=== PATIENT | female | born 1960 | race Caucasian/White ===

== ENCOUNTER 2016-12-13 18:02 | Inpatient (IN) | payer MEDICAID ==
--- NOTE | 2016-12-13 18:50 | EDPHY ---
Mental Health General Previous Psychiatric History: previous inpatient psychiatric admission, substance abuse, PTSD Smoking Status: Current every day smoker Time Patient Placed on M1 Hold: 17:25 Time Medically Cleared for Psychiatric Evaluation: 19:36 Time of Transfer of Care: 00:00 To Dr:: Braulio Course: awaiting acceptance to inpatient bed <Varsha Glynn - Last Filed: 12/13/16 23:24> <Lukas Bojorquez - Last Filed: 12/14/16 10:50> <Mic Ramsey - Last Filed: 12/15/16 06:59> To Dr:: Dr. Ramsey at 2215 <DemetraCali Marie - Last Filed: 12/15/16 14:13> <Clint Neri - Last Filed: 12/15/16 23:23> <Hermelinda Brock - Last Filed: 12/16/16 06:17> Narrative: CHIEF COMPLAINT: suicidal ideations HISTORY OF PRESENT ILLNESS: 56-year-old transgender female presents emergency department on an M1 hold from [facility] for suicidal ideations. Patient has a history of PTSD. She is reporting suicidal ideations for the past 2 weeks with auditory and visual hallucinations. Patient states she has not had any alcohol for 1 week, no marijuana for 1 week, she denies other drug use. She denies chest pain, shortness of breath, fevers, any other complaints. She reports a plan to stop eating. REVIEW OF SYSTEMS: A comprehensive 10 point review of systems is otherwise negative aside from elements mentioned in the history of present illness. Physical Exam Gen: Alert and Oriented, NAD HEENT: PERRL, moist mucous membranes NECK: no meningismus CV: regular rate and regular rhythm PULM: CTAB, no wheezes ABDOMEN: soft, non tender to palpation, BS present BACK: No CVA tenderness NEURO: Neurologically grossly intact EXTREMITIES: normal appearing SKIN: no rash or break in skin on exposed skin PSYCH: Reports suicidal ideations, auditory and visual hallucinations. (Varsha Glynn) [id number] patient signed out to nd from YOLANDA Glynn pending placement. (Mic Ramsey) Patient's care transferred to nd at 7:[address] Raj Ramsey. Patient is currently sleeping and has no complaints. We are awaiting placement. She is on a hold. 3:00 p.m. no events throughout the day, continue to await placement. Care transferred to Dr. Cali Mccrary. 3:00 p.m. December 15. Patient's care transferred back to me by Dr. Cali Mccrary. Patient has been quite throughout the day and is currently awaiting placement. 11:23 p.m. mental Health is planning to re-evaluate the patient and is considering discharge. Care transferred to Dr. Brock. (Clint Neri) Medical Decision Makin-Report passed on to Dr. Ramsey at the end of my shift pending placement. EPS is seeking placement. (Varsha Glynn) 1020 Care re-assumed by me pending placement. [address] Mccrary pending placement. (Mic Ramsey) Patient has remained stable on my shift. She has been evaluated and mental health is looking for placement Patient has remained stable on my shift. She has been evaluated and is looking for placement (Cali Mccrary) 7:00 a.m.- The patient has been stable throughout my shift. She was evaluated by the mental health worker who is currently looking for a crisis stabilization unit. The patient will be signed out to the oncoming provider Dr. Vasquez. (Hermelinda Brock) - Objective Vital Signs: Initial Vital Signs Temperature (C) 36.4 C 12/13/16 18:02 Heart Rate 59 L 12/13/16 18:02 Respiratory Rate 20 12/13/16 18:02 Blood Pressure 125/80 H 12/13/16 18:02 O2 Sat (%) 96 12/13/16 18:02 O2 Delivery Mode Room Air Allergies/Adverse Reactions: bupropion HCl [From Wellbutrin] Allergy (Verified 12/13/16 18:13) Pork/Porcine Containing Products [pork] Allergy (Verified 12/13/16 18:13) varenicline tartrate [From Chantix] Allergy (Verified 12/13/16 18:13) Home Medications: Medication Instructions Recorded Albuterol [Proventil Inhaler HFA 2 puffs IH Q4-6PRN PRN 12/13/16 (*)] Estradiol [Estradiol Transdermal 1 each TD Q7D 12/13/16 Patch] Gabapentin [Neurontin 300 MG (*)] 300 mg PO TID 12/13/16 Naproxen [Naprosyn] 500 mg PO BID PRN 12/13/16 Tiotropium Inhaler [Spiriva 18 mcg IH DAILY 12/13/16 Handihaler] risperiDONE [Risperdal] 2 mg PO BID 12/13/16 Albuterol [Proventil Neb] 3 ml IH Q4H PRN 12/15/16 Beclomethasone Qvar 80 [Qvar 80 2 puffs IH BIDI 12/15/16 (*)] Calcium Carb W/Vit D [Calcium Carb 500 mg PO DAILY 12/15/16 W/Vit D 500/200 (*)] Docusate Sodium [Colace 100 MG (*)] 100 mg PO DAILY 12/15/16 Emtricitabine/Tenofovir [Truvada 1 tab PO DAILY 12/15/16 200MG/300MG (*)] Fluticasone Nasal [Flonase Nasal 1 sprays NASAL HS 12/15/16 [place] (RX)] Nicotine [Nicoderm Cq 21 mg (*)] 21 mg TD DAILY 12/15/16 Spironolactone [Aldactone 50 MG 50 mg PO DAILY 12/15/16 (RX)] Terbinafine HCl [LamISIL 250 MG 250 mg PO DAILY 12/15/16 (*)] Medications Given: Discontinued Medications Acetaminophen (Tylenol) 650 mg PO EDNOW ONE Stop: 12/14/16 08:29 Last Admin: 12/14/16 09:12 Dose: 650 mg Acetaminophen (Tylenol) 1,000 mg PO EDNOW ONE Stop: 12/14/16 18:55 Last Admin: 12/14/16 18:54 Dose: 1,000 mg Calcium Carbonate (Oyster Shell Calcium) 500 mg PO EDNOW ONE Stop: 12/15/16 10:52 Last Admin: 12/15/16 11:39 Dose: 500 mg Gabapentin (Neurontin) 300 mg PO EDNOW ONE Stop: 12/13/16 22:22 Last Admin: 12/13/16 23:06 Dose: 300 mg Gabapentin (Neurontin) 300 mg PO EDNOW ONE Stop: 12/14/16 08:30 Last Admin: 12/14/16 09:12 Dose: 300 mg Gabapentin (Neurontin) 100 mg PO EDNOW ONE Stop: 12/14/16 19:55 Last Admin: 12/14/16 20:16 Dose: 300 mg Gabapentin (Neurontin) 300 mg PO EDNOW ONE Stop: 12/15/16 06:24 Last Admin: 12/15/16 06:27 Dose: 300 mg Gabapentin (Neurontin) 300 mg PO EDNOW ONE Stop: 12/15/16 12:18 Last Admin: 12/15/16 12:24 Dose: 300 mg Gabapentin (Neurontin) 300 mg PO EDNOW ONE Stop: 12/15/16 19:25 Last Admin: 12/15/16 19:35 Dose: 300 mg Naproxen (Aleve) 220 mg PO EDNOW ONE Stop: 12/13/16 22:23 Last Admin: 12/13/16 23:07 Dose: 220 mg Naproxen (Aleve) 220 mg PO ONCE ONE Stop: 12/14/16 08:29 Last Admin: 12/14/16 10:07 Dose: 220 mg Naproxen (Aleve) 220 mg PO ONCE ONE Stop: 12/15/16 06:39 Last Admin: 12/15/16 06:49 Dose: 220 mg Naproxen (Aleve) 220 mg PO EDNOW ONE Stop: 12/15/16 14:22 Last Admin: 12/15/16 14:57 Dose: 220 mg Nicotine (Nicoderm Cq) 14 mg TD EDNOW ONE Stop: 12/14/16 08:28 Last Admin: 12/14/16 10:07 Dose: 14 mg Nicotine (Nicoderm Cq) 21 mg TD EDNOW ONE Stop: 12/15/16 10:54 Last Admin: 12/15/16 11:39 Dose: 21 mg Risperidone (Risperdal) 2 mg PO EDNOW ONE Stop: 12/13/16 22:23 Last Admin: 12/13/16 23:07 Dose: 2 mg Risperidone (Risperdal) 2 mg PO ONCE ONE Stop: 12/14/16 10:09 Last Admin: 12/14/16 10:25 Dose: 2 mg Risperidone (Risperdal) 2 mg PO ONCE ONE Stop: 12/14/16 19:55 Last Admin: 12/14/16 20:16 Dose: 2 mg Risperidone (Risperdal) 2 mg PO ONCE ONE Stop: 12/15/16 06:24 Last Admin: 12/15/16 06:41 Dose: 2 mg Risperidone (Risperdal) 2 mg PO ONCE ONE Stop: 12/15/16 19:26 Last Admin: 12/15/16 19:35 Dose: 2 mg Spironolactone (Aldactone) 50 mg PO EDNOW ONE Stop: 12/15/16 10:54 Last Admin: 12/15/16 11:39 Dose: 50 mg Laboratory Results: Laboratory Results 12/13/16 18:45 12/13/16 18:45 Departure <Varsha Glynn - Last Filed: 12/13/16 23:24> <Lukas Bojorquez - Last Filed: 12/14/16 10:50> <Mic Ramsey - Last Filed: 12/15/16 06:59> <Cali Mccrary - Last Filed: 12/15/16 14:13> <Clint Neri - Last Filed: 12/15/16 23:23> <Hermelinda Brock - Last Filed: 12/16/16 06:17> - Departure Referrals: Patient,NotPresent [Unknown] - As per Instructions
[2016-12-13 18:56] LABS: % IMMATURE GRANULYOCYTES 0.2 % (0.0-1.1); ABSOLUTE IMMATURE GRANULOCYTES 0.01 10^3/uL (0.00-0.10); ADD DIFF? NO; ADD MORPH? NO; ADD SCAN? NO; ATYPICAL LYMPHOCYTE FLAG 10 (0-99); FRAGMENT RBC FLAG 0 (0-99); HEMATOCRIT 43.2 % (38.0-47.0); HEMOGLOBIN 14.3 g/dL (12.6-16.3); LEFT SHIFT FLG 0 (0-99); LIPEMIA HEMOLYSIS FLAG 80 (0-99); MEAN CELL HEMOGLOBIN 32.1 pg (27.9-34.1); MEAN CELL HEMOGLOBIN CONCENTR. 33.1 g/dL (32.4-36.7); MEAN CELL VOLUME 96.9 fL (81.5-99.8); MEAN PLATELET VOLUME 9.5 fL (8.7-11.7); PLATELET CLUMPS FLAG 0 (0-99); PLATELET COUNT 208 10^3/uL (150-400); RED BLOOD CELL COUNT 4.46 10^6/uL (4.18-5.33); RED CELL DISTRIBUTION WIDTH 12.7 % (11.5-15.2)
[2016-12-13 19:11] LABS: ANION GAP 11 mEq/L (8-16); CALCIUM 9.2 mg/dL (8.5-10.4); CARBON DIOXIDE 28 mEq/l (22-31); CHLORIDE 102 mEq/L (97-110); CREATININE 0.8 mg/dL (0.6-1.0); ETHANOL SERUM < 10 mg/dL (0-10); GLOMERULAR FILTRATION RATE > 60; GLUCOSE 110 mg/dL (70-100); POTASSIUM 4.6 mEq/L (3.5-5.2); SODIUM 141 mEq/L (134-144)
[2016-12-13] MEDS ORDERED: GABAPENTIN 300 MG CAP PO ONE (22:21)
[2016-12-13] MEDS ORDERED: risperiDONE 2 MG TAB PO ONE (22:22)
[2016-12-13] MEDS ORDERED: NAPROXEN SODIUM 220 MG TAB PO ONE (22:22)
[2016-12-14] MEDS ORDERED: NICOTINE 14 MG/24 HR PATCH TD ONE (08:27)
[2016-12-14] MEDS ORDERED: NAPROXEN SODIUM 220 MG TAB PO ONE (08:28)
[2016-12-14] MEDS ORDERED: ACETAMINOPHEN 325 MG TAB PO ONE (08:28)
[2016-12-14] MEDS ORDERED: GABAPENTIN 300 MG CAP PO ONE (08:29)
[2016-12-14] MEDS ORDERED: FAMOTIDINE 20 MG TAB ONE (10:02)
[2016-12-14] MEDS ORDERED: risperiDONE 2 MG TAB PO ONE ×2 (10:08→19:54)
[2016-12-14] MEDS ORDERED: ACETAMINOPHEN 500 MG TAB PO ONE (18:54)
[2016-12-14] MEDS ORDERED: GABAPENTIN 100 MG CAP PO ONE (19:54)
[2016-12-15] MEDS ORDERED: GABAPENTIN 300 MG CAP PO ONE ×3 (06:23→19:24)
[2016-12-15] MEDS ORDERED: risperiDONE 2 MG TAB PO ONE ×2 (06:23→19:25)
[2016-12-15] MEDS ORDERED: NAPROXEN SODIUM 220 MG TAB PO ONE ×2 (06:38→14:21)
[2016-12-15] MEDS ORDERED: ESTRADIOL VIVELLE 0.1 MG PATCH TD SCH (08:00)
[2016-12-15] MEDS ORDERED: CALCIUM CARBONATE 500 MG TAB PO ONE (10:51)
[2016-12-15] MEDS ORDERED: SPIRONOLACTONE 50 MG TAB PO ONE (10:53)
[2016-12-15] MEDS ORDERED: NICOTINE 21 MG/24 HR PATCH TD ONE ×2 (10:53→21:57)
[2016-12-15] MEDS ORDERED: EMTRICITABINE/TENOFOVIR 200MG/300MG TAB PO ONE (11:29)
[2016-12-15] MEDS: EMTRICITABINE/TENOFOVIR 200MG/300MG TAB PO ONE (11:39)
[2016-12-16] MEDS ORDERED: GABAPENTIN 300 MG CAP PO ONE ×2 (07:32→11:50)
[2016-12-16] MEDS ORDERED: CALCIUM CARBONATE 500 MG TAB PO ONE (07:32)
[2016-12-16] MEDS ORDERED: NAPROXEN SODIUM 220 MG TAB PO PRN (07:32)
[2016-12-16] MEDS ORDERED: SPIRONOLACTONE 25 MG TAB PO ONE (07:32)
[2016-12-16] MEDS ORDERED: risperiDONE 2 MG TAB PO ONE (07:32)
[2016-12-16] MEDS: EMTRICITABINE/TENOFOVIR 200MG/300MG TAB PO ONE (09:00)
[2016-12-16] MEDS ORDERED: ALBUTEROL 60 PUFFS/8 GM MDI IH PRN (21:45)
[2016-12-16] MEDS ORDERED: ACETAMINOPHEN 325 MG TAB PO PRN (21:48)
[2016-12-16] MEDS ORDERED: MAGNESIUM HYDROXIDE 30 ML UDCUP PO PRN (21:48)
[2016-12-16] MEDS ORDERED: NICOTINE POLACRILEX 2 MG GUM B PRN (21:49)
[2016-12-16] MEDS ORDERED: LORazepam 0.5 MG TAB PO PRN (21:49)
[2016-12-16] MEDS: NAPROXEN SODIUM 220 MG TAB PO PRN (22:02)
[2016-12-16] MEDS: risperiDONE 2 MG TAB PO SCH (22:02)
[2016-12-16] MEDS: GABAPENTIN 300 MG CAP PO SCH (22:02)
[2016-12-16] MEDS: FLUTICASONE NASAL 120 SPRAYS/16 GM MDI EACHNARE SCH (22:06)
[2016-12-16] MEDS: BECLOMETHASONE QVAR 80 MDI IH SCH (22:18)
[2016-12-17] MEDS: BECLOMETHASONE QVAR 80 MDI IH SCH ×2 (06:13→21:43)
[2016-12-17] MEDS: NICOTINE 21 MG/24 HR PATCH TD SCH (07:13)
[2016-12-17] MEDS: CALCIUM CARB W/VIT D 500 MG TAB PO SCH (08:16)
[2016-12-17] MEDS: DOCUSATE SODIUM 100 MG CAP PO SCH (08:16)
[2016-12-17] MEDS: EMTRICITABINE/TENOFOVIR 200MG/300MG TAB PO SCH (08:17)
[2016-12-17] MEDS: GABAPENTIN 300 MG CAP PO SCH ×3 (08:17→19:01)
[2016-12-17] MEDS: SPIRONOLACTONE 50 MG TAB PO SCH (08:18)
[2016-12-17] MEDS: risperiDONE 2 MG TAB PO SCH ×2 (08:18→19:01)
[2016-12-17] MEDS: TERBINAFINE HCL 250 MG TAB PO SCH (08:21)
[2016-12-17] MEDS: TIOTROPIUM INHALER 18 MCG/DOSE 5 DOSE/MDI IH SCH (08:21)
[2016-12-17] MEDS: NAPROXEN SODIUM 220 MG TAB PO PRN ×2 (08:28→19:00)
[2016-12-17] MEDS: ALBUTEROL 60 PUFFS/8 GM MDI IH SCH ×5 (08:59→21:42)
[2016-12-17] MEDS ORDERED: PNEUMOCOCCAL 0.5ML VACCINE VIAL IM ONE (12:27)
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
[2016-12-17] MEDS ORDERED: risperiDONE 0.5 MG TAB PO PRN (19:45)
[2016-12-17] MEDS ORDERED: PRAZOSIN HCL 1 MG CAP PO SCH (21:00)
[2016-12-17] MEDS: GABAPENTIN 400 MG CAP PO SCH (21:43)
[2016-12-17] MEDS: FLUTICASONE NASAL 120 SPRAYS/16 GM MDI EACHNARE SCH (21:44)
[2016-12-18] MEDS: ALBUTEROL 60 PUFFS/8 GM MDI IH SCH ×3 (02:06→09:16)
[2016-12-18] MEDS: BECLOMETHASONE QVAR 80 MDI IH SCH ×2 (07:23→21:53)
[2016-12-18] MEDS ORDERED: ESTRADIOL VIVELLE 0.1 MG PATCH TD SCH (08:00)
[2016-12-18] MEDS: GABAPENTIN 400 MG CAP PO SCH ×3 (08:06→20:30)
[2016-12-18] MEDS: DOCUSATE SODIUM 100 MG CAP PO SCH ×2 (08:06→08:11)
[2016-12-18] MEDS: CALCIUM CARB W/VIT D 500 MG TAB PO SCH (08:06)
[2016-12-18] MEDS: SPIRONOLACTONE 50 MG TAB PO SCH (08:06)
[2016-12-18] MEDS: risperiDONE 2 MG TAB PO SCH ×2 (08:06→20:32)
[2016-12-18] MEDS: EMTRICITABINE/TENOFOVIR 200MG/300MG TAB PO SCH (08:07)
[2016-12-18] MEDS: TERBINAFINE HCL 250 MG TAB PO SCH (08:11)
[2016-12-18] MEDS: NAPROXEN SODIUM 220 MG TAB PO PRN (08:12)
[2016-12-18] MEDS: NICOTINE 21 MG/24 HR PATCH TD SCH (08:15)
[2016-12-18] MEDS: TIOTROPIUM INHALER 18 MCG/DOSE 5 DOSE/MDI IH SCH (08:59)
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
[2016-12-18] MEDS: ALBUTEROL INHALER IH PRN (13:35)
[2016-12-18] MEDS: FLUTICASONE NASAL 120 SPRAYS/16 GM MDI EACHNARE SCH (20:32)
[2016-12-18] MEDS ORDERED: PRAZOSIN HCL 1 MG CAP PO SCH (21:00)
[2016-12-18] MEDS ORDERED: ESTRADIOL TD SCH (21:32)
[2016-12-19] MEDS: GABAPENTIN 400 MG CAP PO SCH ×4 (06:20→18:45)
[2016-12-19] MEDS: BECLOMETHASONE QVAR 80 MDI IH SCH ×2 (06:34→17:11)
[2016-12-19] MEDS: NICOTINE 21 MG/24 HR PATCH TD SCH ×2 (09:09→16:49)
[2016-12-19] MEDS: EMTRICITABINE/TENOFOVIR 200MG/300MG TAB PO SCH (09:10)
[2016-12-19] MEDS: SPIRONOLACTONE 50 MG TAB PO SCH (09:10)
[2016-12-19] MEDS: risperiDONE 2 MG TAB PO SCH ×2 (09:11→18:46)
[2016-12-19] MEDS: NAPROXEN SODIUM 220 MG TAB PO PRN ×2 (09:11→18:48)
[2016-12-19] MEDS: TIOTROPIUM INHALER 18 MCG/DOSE 5 DOSE/MDI IH SCH (09:21)
[2016-12-19] MEDS: ALBUTEROL INHALER IH PRN ×3 (09:23→21:28)
[2016-12-19] MEDS: CALCIUM CARB W/VIT D 500 MG TAB PO SCH (09:25)
[2016-12-19] MEDS: DOCUSATE SODIUM 100 MG CAP PO SCH (09:25)
[2016-12-19] MEDS: TERBINAFINE HCL 250 MG TAB PO SCH (09:28)
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
[2016-12-19] MEDS: [UNRECOGNIZED DRUG - OTHER] PO SCH (12:59)
[2016-12-19] MEDS: [UNRECOGNIZED DRUG - OTHER] PO SCH (13:00)
[2016-12-19] MEDS: OMEGA-3 FATTY ACIDS 1,000 MG CAP PO SCH (13:01)
[2016-12-19] MEDS: FLUTICASONE NASAL 120 SPRAYS/16 GM MDI EACHNARE SCH ×2 (18:49→21:27)
[2016-12-19] MEDS ORDERED: PRAZOSIN HCL 1 MG CAP PO SCH (19:00)
[2016-12-20] MEDS: ALBUTEROL INHALER IH PRN ×4 (06:35→20:16)
[2016-12-20] MEDS: risperiDONE 2 MG TAB PO SCH ×2 (06:36→18:50)
[2016-12-20] MEDS: TERBINAFINE HCL 250 MG TAB PO SCH (06:38)
[2016-12-20] MEDS: SPIRONOLACTONE 50 MG TAB PO SCH (06:39)
[2016-12-20] MEDS: EMTRICITABINE/TENOFOVIR 200MG/300MG TAB PO SCH (06:39)
[2016-12-20] MEDS: GABAPENTIN 400 MG CAP PO SCH ×3 (06:40→18:50)
[2016-12-20] MEDS: CALCIUM CARB W/VIT D 500 MG TAB PO SCH (06:41)
[2016-12-20] MEDS: NICOTINE 21 MG/24 HR PATCH TD SCH (06:42)
[2016-12-20] MEDS: [UNRECOGNIZED DRUG - OTHER] PO SCH (06:43)
[2016-12-20] MEDS: [UNRECOGNIZED DRUG - OTHER] PO SCH (06:44)
[2016-12-20] MEDS: OMEGA-3 FATTY ACIDS 1,000 MG CAP PO SCH (06:45)
[2016-12-20] MEDS: TIOTROPIUM INHALER 18 MCG/DOSE 5 DOSE/MDI IH SCH (06:46)
[2016-12-20] MEDS: BECLOMETHASONE QVAR 80 MDI IH SCH ×2 (06:54→17:03)
[2016-12-20] MEDS: DOCUSATE SODIUM 100 MG CAP PO SCH (06:54)
[2016-12-20] MEDS ORDERED: NICOTINE 21 MG/24 HR PATCH TD SCH (07:00)
[2016-12-20] MEDS: NAPROXEN SODIUM 220 MG TAB PO PRN ×2 (08:51→19:13)
--- NOTE | 2016-12-20 09:52 | SOAPPROG ---
SOAP Progress Note Assessment/Plan: Assessment: 56-year-old w/hx of PTSD and possible mood d/o reportedly illiterate unemployed homeless transgendered [id number] reporting extensive trauma history and self-reported [facility] 7, admitted on M-1 with SI, feeling unable to maintain own safety outside of hospital setting, and fearing harm from others, and with some delusional thoughts. 12/18/16 09:38 per staff, pt has been with low frustration tolerance, impatient and demanding, escalating easily when needs not met right away, and needing redirection. Patient reports "first best night of sleep in a long time" with Prazosin 1mg hs. No NM/FB. Denied s/e. would like to continue, and incr to 2mg. Still reports SI as "9/10". "I want to learn to cope with others and love myself". States she is still feeling depressed, +anhedonia, +H/H/W, decr appetite, and +"fast" thoughts. Reports no AH but +VH "seeing appliances turning into robots"... Asks about using a razor to shave facial stubble, and take bath if possible. States she can be safe on the unit and wants to be here for help. Denies physical c/o, no akathisia, not tremor/stiffness noted or reported. and denied any medication s/e. MSE: cooperative, good eye contact, nml psychom activity, speech nml/incr rate at times and vol varying according to content of conversation, mood "depressed", affect slightly labile but controlled, thought process generally linear, denied AH, +VH, +SI but no plan/intent, denied HI. i/j- limited, cognition intact PLAN: incr prazosin to 2mg hs cont Risperdal 2mg bid and 0.5mg bid prn okay d/c suicide precautions, continue safety prec [facility] f/u to assist with structured/safe setting after d/c which will help with pt safety eval for possible mood stabilizer if with hx of n/c, could consider Consta Objective: Vital Signs Temp Pulse Resp BP Pulse Ox 36.3 C 78 12 118/71 96 12/20/16 07:50 12/20/16 07:50 12/20/16 07:50 12/20/16 07:50 12/20/16 07:50 - Time Spent With Patient Time Spent With Patient: 35 min - Pending Discharge Pending Discharge Within 24 Hours: No Pending Discharge Within 48 Hours: No ICD10 Worksheet Patient Problems: Problems Problem Status Onset Post traumatic stress disorder (PTSD) Acute Suicidal ideation Acute Unspecified psychosis Acute - ICD10 Problem Qualifiers (1) Suicidal ideation (2) Post traumatic stress disorder (PTSD) (3) Unspecified psychosis Qualifiers: Psychosis type: unspecified psychosis type Schizoaffective disorder type: S Schizophrenia type: S Qualified Code(s): F29 - Unspecified psychosis not due to a substance or known physiological condition
[2016-12-20] MEDS ORDERED: PRAZOSIN HCL 1 MG CAP PO SCH (10:06)
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
[2016-12-20] MEDS: FLUTICASONE NASAL 120 SPRAYS/16 GM MDI EACHNARE SCH (18:50)
[2016-12-20] MEDS: MAG HYDROX/AL HYDROX/SIMETH 30 ML UDCUP PO PRN (18:50)
[2016-12-21] MEDS: GABAPENTIN 400 MG CAP PO SCH ×3 (06:42→18:55)
[2016-12-21] MEDS: SPIRONOLACTONE 50 MG TAB PO SCH (06:43)
[2016-12-21] MEDS: CALCIUM CARB W/VIT D 500 MG TAB PO SCH (06:43)
[2016-12-21] MEDS: risperiDONE 2 MG TAB PO SCH ×2 (06:43→18:55)
[2016-12-21] MEDS: NICOTINE 21 MG/24 HR PATCH TD SCH (06:44)
[2016-12-21] MEDS: EMTRICITABINE/TENOFOVIR 200MG/300MG TAB PO SCH (06:46)
[2016-12-21] MEDS: TERBINAFINE HCL 250 MG TAB PO SCH (06:46)
[2016-12-21] MEDS: NAPROXEN SODIUM 220 MG TAB PO PRN (06:47)
[2016-12-21] MEDS: ALBUTEROL INHALER IH PRN ×4 (06:47→18:23)
[2016-12-21] MEDS: [UNRECOGNIZED DRUG - OTHER] PO SCH (06:48)
[2016-12-21] MEDS: [UNRECOGNIZED DRUG - OTHER] PO SCH (06:49)
[2016-12-21] MEDS: TIOTROPIUM INHALER 18 MCG/DOSE 5 DOSE/MDI IH SCH ×2 (06:51→10:41)
[2016-12-21] MEDS: BECLOMETHASONE QVAR 80 MDI IH SCH ×2 (06:51→17:11)
[2016-12-21] MEDS: DOCUSATE SODIUM 100 MG CAP PO SCH (06:52)
[2016-12-21] MEDS: OMEGA-3 FATTY ACIDS 1,000 MG CAP PO SCH (06:56)
[2016-12-21 07:26] VITALS: RESP 16
[2016-12-21] MEDS ORDERED: PRAZOSIN HCL 1 MG CAP PO SCH (10:40)
[2016-12-21] MEDS: MAG HYDROX/AL HYDROX/SIMETH 30 ML UDCUP PO PRN (10:42)
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
[2016-12-21] MEDS ORDERED: GABAPENTIN 400 MG CAP PO SCH (10:48)
[2016-12-21] MEDS: GABAPENTIN 100 MG CAP PO SCH ×2 (12:20→18:55)
[2016-12-21] MEDS: FLUTICASONE NASAL 120 SPRAYS/16 GM MDI EACHNARE SCH (18:55)
[2016-12-22] MEDS: TERBINAFINE HCL 250 MG TAB PO SCH (06:26)
[2016-12-22] MEDS: SPIRONOLACTONE 50 MG TAB PO SCH (06:26)
[2016-12-22] MEDS: EMTRICITABINE/TENOFOVIR 200MG/300MG TAB PO SCH (06:27)
[2016-12-22] MEDS: OMEGA-3 FATTY ACIDS 1,000 MG CAP PO SCH (06:27)
[2016-12-22] MEDS: ALBUTEROL INHALER IH PRN (06:28)
[2016-12-22] MEDS: GABAPENTIN 100 MG CAP PO SCH (06:28)
[2016-12-22] MEDS: risperiDONE 2 MG TAB PO SCH (06:31)
[2016-12-22] MEDS: DOCUSATE SODIUM 100 MG CAP PO SCH (06:35)
[2016-12-22] MEDS: BECLOMETHASONE QVAR 80 MDI IH SCH (06:35)
[2016-12-22] MEDS: NICOTINE 21 MG/24 HR PATCH TD SCH (06:35)
[2016-12-22] MEDS: NAPROXEN SODIUM 220 MG TAB PO PRN (06:49)
[2016-12-22] MEDS: CALCIUM CARB W/VIT D 500 MG TAB PO SCH (06:52)
[2016-12-22] MEDS: GABAPENTIN 400 MG CAP PO SCH (06:54)
[2016-12-22] MEDS: TIOTROPIUM INHALER 18 MCG/DOSE 5 DOSE/MDI IH SCH ×2 (06:56→08:28)
[2016-12-22] MEDS: [UNRECOGNIZED DRUG - OTHER] PO SCH ×2 (06:56→08:27)
[2016-12-22] MEDS: [UNRECOGNIZED DRUG - OTHER] PO SCH ×2 (06:56→08:28)
[2016-12-22] MEDS ORDERED: ESTRADIOL VIVELLE 0.1 MG PATCH TD SCH (07:00)
[2016-12-22 08:28] VITALS: BP 119/71; PULSE 77; TEMP 98.2; O2SAT 95
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
== END 2016-12-22 10:40 | disposition home or self-care (01) | DRG 882 ==
LOC: EDUNIT# → EEVIPCON 18:02 → BBEH 12-16 20:50
PROVIDERS: ADMIT Psychiatry & Neurology Behavioral Neurology & Neuropsychiatry; ATTEND Psychiatry & Neurology Behavioral Neurology & Neuropsychiatry
DX: F43.10 Post-traumatic stress disorder, unspecified (principal); F60.4 Histrionic personality disorder; J44.9 Chronic obstructive pulmonary disease, unspecified; G89.29 Other chronic pain; F19.90 Other psychoactive substance use, unspecified, uncomplicated; Z21 Asymptomatic human immunodeficiency virus [HIV] infection status; Z72.89 Other problems related to lifestyle; Z72.0 Tobacco use; Z59.0 Homelessness
CPT/HCPCS: 80305; G0009; G0480

== ENCOUNTER 2016-12-23 07:55 | Emergency (ER) | payer MEDICAID ==
[2016-12-23 08:06] VITALS: RESP 18; TEMP 97.9
--- NOTE | 2016-12-23 08:19 | CPEKG ---
Heart Rate: 72 RR Interval: 833 P-R Interval: 172 QRSD Interval: 108 QT Interval: 416 QTC Interval: 456 P Jadwin: 77 QRS Jadwin: 74 T Wave Jadwin: 54 EKG Severity - NORMAL ECG - EKG Impression: SINUS RHYTHM Electronically Signed By: Milagros Cottrell 23-Dec-2016 15:19:52
[2016-12-23 08:37] LABS: % IMMATURE GRANULYOCYTES 0.5 % (0.0-1.1); ABSOLUTE IMMATURE GRANULOCYTES 0.03 10^3/uL (0.00-0.10); ADD DIFF? NO; ADD MORPH? NO; ADD SCAN? NO; ATYPICAL LYMPHOCYTE FLAG 0 (0-99); FRAGMENT RBC FLAG 0 (0-99); HEMATOCRIT 42.1 % (38.0-47.0); HEMOGLOBIN 14.4 g/dL (12.6-16.3); LEFT SHIFT FLG 0 (0-99); LIPEMIA HEMOLYSIS FLAG 90 (0-99); MEAN CELL HEMOGLOBIN CONCENTR. 34.2 g/dL (32.4-36.7); MEAN CELL VOLUME 93.6 fL (81.5-99.8); MEAN PLATELET VOLUME 9.9 fL (8.7-11.7); PLATELET CLUMPS FLAG 0 (0-99); PLATELET COUNT 207 10^3/uL (150-400); RED CELL DISTRIBUTION WIDTH 12.2 % (11.5-15.2)
[2016-12-23 08:52] LABS: ALANINE AMINOTRANSFERASE 58 IU/L (9-52); ALBUMIN 4.2 g/dL (3.5-5.0); ALKALINE PHOSPHATASE 79 IU/L (38-126); ANION GAP 10 mEq/L (8-16); ASPARTATE AMINOTRANSFERASE 29 IU/L (14-46); BILIRUBIN,TOTAL 0.9 mg/dL (0.1-1.4); BILIRUBIN-CONJUGATED 0.4 mg/dL (0.0-0.5); BILIRUBIN-UNCONJUGATED 0.5 mg/dL (0.0-1.1); CALCIUM 9.6 mg/dL (8.5-10.4); CARBON DIOXIDE 26 mEq/l (22-31); CHLORIDE 103 mEq/L (97-110); CREATININE 0.8 mg/dL (0.6-1.0); GLOMERULAR FILTRATION RATE > 60; GLUCOSE 89 mg/dL (70-100); POTASSIUM 4.6 mEq/L (3.5-5.2); SODIUM 139 mEq/L (134-144); TOTAL PROTEIN 7.3 g/dL (6.3-8.2)
[2016-12-23 09:02] LABS: TROPONIN I < 0.012 ng/mL (0-0.034)
--- NOTE | 2016-12-23 09:59 | EDPHY ---
H & P Stated Complaint: generalized pain, N/V , CP Time Seen by Provider: 12/23/16 08:01 HPI/ROS: Chief complaint: Chest pain and abdominal pain History of present illness: This is a 56-year-old transgender male who identifies as a female who presents to the emergency department for evaluation of chest pain and abdominal pain. Patient reports the onset of symptoms late last night. She states initially she felt dizzy, describing lightheadedness. She subsequently developed chest pain and abdominal pain. She describes diffuse pain across the anterior chest and in the epigastric region of the abdomen. She denies precipitating factors. She denies alleviating factors. She denies other associated signs or symptoms including no fevers or cold symptoms, no cough or trouble breathing, no pain or swelling in the legs. Review of systems: A 10 point review of systems was obtained and other than described above was negative - Personal History Current Tetanus Diphtheria and Acellular Pertussis (TDAP): Yes - Medical/Surgical History Hx Asthma: No Hx Chronic Respiratory Disease: Yes Hx Diabetes: No Hx Cardiac Disease: No Hx Renal Disease: No Hx Cirrhosis: No Hx Alcoholism: Yes Hx HIV/AIDS: No Hx Splenectomy or Spleen Trauma: No Other PMH: COPD, PTSD, osteoarthritis, ortho sx, TBIs - Social History Smoking Status: Current every day smoker - Physical Exam Exam: General Appearance: Alert, nontoxic. Eyes: Pupils equal and round no pallor or injection. ENT, Mouth: Mucous membranes moist. Respiratory: There are no retractions, lungs are clear to auscultation. Cardiovascular: Regular rate and rhythm. Gastrointestinal: Abdomen is soft and nontender, no masses, bowel sounds normal. Neurological: Alert. Strength and sensation intact and symmetrical. Skin: Warm and dry, no rashes. Musculoskeletal: Neck is supple nontender. Extremities are symmetrical, full range of motion. Psychiatric: Patient is oriented X 3, there is no agitation. Constitutional: Initial Vital Signs Temperature (C) 36.6 C 12/23/16 07:55 Heart Rate 59 L 12/23/16 07:55 Respiratory Rate 18 12/23/16 07:55 Blood Pressure 133/88 H 12/23/16 07:55 O2 Sat (%) 92 12/23/16 07:55 O2 Delivery Mode Room Air Allergies/Adverse Reactions: aspirin Allergy (Verified 12/23/16 08:05) bupropion HCl [From Wellbutrin] Allergy (Verified 12/13/16 18:13) Pork/Porcine Containing Products [pork] Allergy (Verified 12/13/16 18:13) varenicline tartrate [From Chantix] Allergy (Verified 12/13/16 18:13) Home Medications: Medication Instructions Recorded Albuterol [Proventil Inhaler HFA 2 puffs IH Q4-6PRN PRN 12/13/16 (*)] Estradiol [Estradiol Transdermal 1 each TD Q7D 12/13/16 Patch] Naproxen [Naprosyn] 500 mg PO BID PRN 12/13/16 Tiotropium Inhaler [Spiriva 18 mcg IH DAILY 12/13/16 Handihaler] Albuterol [Proventil Neb] 3 ml IH Q4H PRN 12/15/16 Emtricitabine/Tenofovir [Truvada 1 tab PO DAILY 12/15/16 200MG/300MG (*)] Fluticasone Nasal [Flonase Nasal 1 sprays NASAL HS 12/15/16 [place]] Spironolactone [Aldactone] 50 mg PO DAILY 12/15/16 Terbinafine HCl [LamISIL 250 MG 250 mg PO DAILY 12/15/16 (*)] Beclomethasone Qvar 80 [Qvar 80 2 puffs IH BIDI #1 mdi 12/22/16 (*)] Calcium Carb W/Vit D [Calcium Carb 500 mg PO DAILY #30 tab 12/22/16 W/Vit D 500/200 (*)] Docusate Sodium [Colace 100 MG (*)] 100 mg PO DAILY #30 cap 12/22/16 Fluticasone Nasal [Flonase Nasal 1 sprays [place] HS@1900 #0 mdi 12/22/16 [place]] Gabapentin [Neurontin 100 MG (*)] 100 mg PO TID@0700,1200,1900 #90 12/22/16 cap Gabapentin [Neurontin 400 MG (*)] 400 mg PO TID@0700,1200,1900 #90 12/22/16 cap [place]-3 Fatty Acids [Fish Oil 1000 0 mg PO DAILY@0700 #0 cap 12/22/16 mg (*)] Prazosin HCl [Minipress 1mg (*)] 4 mg PO HS@1900 #60 cap 12/22/16 risperiDONE [Risperdal] 3 mg PO BID@0700,1900 #60 tab 12/22/16 Medical Decision Making ED Course/Re-evaluation: Patient discussed with my primary supervising physician Dr. Milagros Cottrell. Patient presents to the emergency department for evaluation of chest and abdominal pain. Patient is nontoxic. Afebrile and vital signs are stable. Blood studies, EKG and chest x-ray unremarkable. My suspicion for serious underlying pathology requiring inpatient admission is low. I believe she is appropriate for outpatient management. Patient is discharged home. Asked to follow up with her primary care doctor for continued evaluation and care. Strict return precautions are given. Patient voiced understanding and agreement with plan. Differential Diagnosis: Included but not limited to ACS, cardiac dysrhythmia, pulmonary embolism, pulmonary infections, pneumothorax, great vessel disease, gastritis, gastroenteritis, biliary tract disease, pancreatitis, anxiety - Data Points Laboratory Results: Laboratory Results 12/23/16 08:03 12/23/16 08:03 12/23/16 12/23/16 12/23/16 08:03 08:03 08:03 WBC RBC Hgb Hct MCV MCH MCHC RDW Plt Count MPV Neut % (Auto) Lymph % (Auto) [place] % (Auto) Eos % (Auto) Baso % (Auto) Nucleat RBC Rel Count Absolute Neuts (auto) Absolute Lymphs (auto) Absolute Monos (auto) Absolute Eos (auto) Absolute Basos (auto) Absolute Nucleated RBC Immature Gran % Immature Gran # D-Dimer < 0.27 ug/mLFEU ug/mLFEU (0.00-0.50) Sodium 139 mEq/L mEq/L (134-144) Potassium 4.6 mEq/L mEq/L (3.5-5.2) Chloride 103 mEq/L mEq/L (97-110) Carbon Dioxide 26 mEq/l mEq/l (22-31) Anion Gap 10 mEq/L mEq/L (8-16) BUN 17 mg/dL mg/dL (7-23) Creatinine 0.8 mg/dL mg/dL (0.6-1.0) Estimated GFR > 60 Glucose 89 mg/dL mg/dL (70-100) Calcium 9.6 mg/dL mg/dL (8.5-10.4) Total Bilirubin 0.9 mg/dL mg/dL (0.1-1.4) Conjugated Bilirubin 0.4 mg/dL mg/dL (0.0-0.5) Unconjugated Bilirubin 0.5 mg/dL mg/dL (0.0-1.1) AST 29 IU/L IU/L (14-46) ALT 58 IU/L H IU/L (9-52) Alkaline Phosphatase 79 IU/L IU/L (38-126) Troponin I < 0.012 ng/mL ng/mL (0-0.034) Total Protein 7.3 g/dL g/dL (6.3-8.2) Albumin 4.2 g/dL g/dL (3.5-5.0) Lipase 67.0 IU/L IU/L (23-300) Beta HCG, Qual NEGATIVE 12/23/16 08:03 WBC 5.58 10^3/uL 10^3/uL (3.80-9.50) RBC 4.50 10^6/uL 10^6/uL (4.18-5.33) Hgb 14.4 g/dL g/dL (12.6-16.3) Hct 42.1 % % (38.0-47.0) MCV 93.6 fL fL (81.5-99.8) MCH 32.0 pg pg (27.9-34.1) MCHC 34.2 g/dL g/dL (32.4-36.7) RDW 12.2 % % (11.5-15.2) Plt Count 207 10^3/uL 10^3/uL (150-400) MPV 9.9 fL fL (8.7-11.7) Neut % (Auto) 63.2 % % (39.3-74.2) Lymph % (Auto) 22.4 % % (15.0-45.0) [place] % (Auto) 8.6 % % (4.5-13.0) Eos % (Auto) 4.8 % % (0.6-7.6) Baso % (Auto) 0.5 % % (0.3-1.7) Nucleat RBC Rel Count 0.0 % % (0.0-0.2) Absolute Neuts (auto) 3.52 10^3/uL 10^3/uL (1.70-6.50) Absolute Lymphs (auto) 1.25 10^3/uL 10^3/uL (1.00-3.00) Absolute Monos (auto) 0.48 10^3/uL 10^3/uL (0.30-0.80) Absolute Eos (auto) 0.27 10^3/uL 10^3/uL (0.03-0.40) Absolute Basos (auto) 0.03 10^3/uL 10^3/uL (0.02-0.10) Absolute Nucleated RBC 0.00 10^3/uL 10^3/uL (0-0.01) Immature Gran % 0.5 % % (0.0-1.1) Immature Gran # 0.03 10^3/uL 10^3/uL (0.00-0.10) D-Dimer Sodium Potassium Chloride Carbon Dioxide Anion Gap BUN Creatinine Estimated GFR Glucose Calcium Total Bilirubin Conjugated Bilirubin Unconjugated Bilirubin AST ALT Alkaline Phosphatase Troponin I Total Protein Albumin Lipase Beta HCG, Qual Departure - Departure Disposition: Home, Routine, Self-Care Clinical Impression: Chest pain, Abdominal pain Condition: Good Instructions: Chest Pain (ED), Abdominal Pain (ED) Additional Instructions: Follow-up with your primary care doctor on Sunday or Sunday for recheck If symptoms worsen or new symptoms develop return to the emergency department for recheck Referrals: BRIGID CHEN MD [Other] - As per Instructions
[2016-12-23 11:14] VITALS: BP 107/77; PULSE 74; O2SAT 92
== END 2016-12-23 11:14 | disposition home or self-care (01) ==
LOC: EDUNIT#
DX: R07.9 Chest pain, unspecified (principal); R10.9 Unspecified abdominal pain; J44.9 Chronic obstructive pulmonary disease, unspecified; F17.200 Nicotine dependence, unspecified, uncomplicated

== ENCOUNTER 2016-12-25 14:12 | Emergency (ER) | payer MEDICAID ==
--- NOTE | 2016-12-25 14:10 | EDPHY ---
H & P Constitutional: Initial Vital Signs Temperature (C) 36.6 C 12/25/16 14:26 Heart Rate 74 12/25/16 14:26 Respiratory Rate 18 12/25/16 14:26 Blood Pressure 130/86 H 12/25/16 14:26 O2 Sat (%) 97 12/25/16 14:26 O2 Delivery Mode Room Air Allergies/Adverse Reactions: aspirin Allergy (Verified 12/23/16 08:05) bupropion HCl [From Wellbutrin] Allergy (Verified 12/13/16 18:13) Pork/Porcine Containing Products [pork] Allergy (Verified 12/13/16 18:13) varenicline tartrate [From Chantix] Allergy (Verified 12/13/16 18:13) Home Medications: Medication Instructions Recorded Albuterol [Proventil Inhaler HFA 2 puffs IH Q4-6PRN PRN 12/13/16 (*)] Estradiol [Estradiol Transdermal 1 each TD Q7D 12/13/16 Patch] Naproxen [Naprosyn] 500 mg PO BID PRN 12/13/16 Tiotropium Inhaler [Spiriva 18 mcg IH DAILY 12/13/16 [place]] Albuterol [Proventil Neb] 3 ml IH Q4H PRN 12/15/16 Emtricitabine/Tenofovir [Truvada 1 tab PO DAILY 12/15/16 200MG/300MG (*)] Fluticasone Nasal [Flonase Nasal 1 sprays NASAL HS 12/15/16 [place]] Spironolactone [Aldactone] 50 mg PO DAILY 12/15/16 Terbinafine HCl [LamISIL 250 MG 250 mg PO DAILY 12/15/16 (*)] Beclomethasone Qvar 80 [Qvar 80 2 puffs IH BIDI #1 mdi 12/22/16 (*)] Calcium Carb W/Vit D [Calcium Carb 500 mg PO DAILY #30 tab 12/22/16 W/Vit D 500/200 (*)] Docusate Sodium [Colace 100 MG (*)] 100 mg PO DAILY #30 cap 12/22/16 Fluticasone Nasal [Flonase Nasal 1 sprays EACHNARE HS@1900 #0 mdi 12/22/16 [place]] Gabapentin [Neurontin 100 MG (*)] 100 mg PO TID@0700,1200,1900 #90 12/22/16 cap Gabapentin [Neurontin 400 MG (*)] 400 mg PO TID@0700,1200,1900 #90 12/22/16 cap [place]-3 Fatty Acids [Fish Oil 1000 0 mg PO DAILY@0700 #0 cap 12/22/16 mg (*)] Prazosin HCl [Minipress 1mg (*)] 4 mg PO HS@1900 #60 cap 12/22/16 risperiDONE [Risperdal] 3 mg PO BID@0700,1900 #60 tab 12/22/16 Medical Decision Making ED Course/Re-evaluation: CHIEF COMPLAINT: Psychiatric evaluation HISTORY OF PRESENT ILLNESS: The patient is a transgender 56 y/o male who presents as female arriving via EMS who states, "I'm not talking to you!" and " I will kill any man that touches me!" He answers affirmatively when asked if he is suicidal. He will not answer any other questions and is not cooperative with exam. He has been here previously with similar presentation. REVIEW OF SYSTEMS: Unobtainable. Patient is not cooperative. PHYSICAL EXAM: General Appearance: Alert, well hydrated, appropriate, and non-toxic appearing. Head: Atraumatic with no obvious injury Eyes: No obvious trauma, normal pupils Ears: pt refused Nose: no visible trauma Throat: pt refused Neck: pt refused Respiratory: pt refused. Yelling in full sentences without evidence of respiratory distress. Cardiovascular: pt refused. Good color. Gastrointestinal: pt refused Musculoskeletal: No visible trauma Neurological: Alert and uncooperative. Moving all 4 extremities spontaneously Skin: No visible rashes or lesions Past medical history: Suicidality Past surgical history: Won't answer Family history: Noncontributory Social history: Transgender. Homeless. DIFFERENTIAL DIAGNOSIS: The differential diagnosis for the patient's depression included but was not limited to functional and major depression, situational depression, medication side effect, drugs, and alcohol abuse. MEDICAL DECISION MAKING: Patient is in no acute distress and is hemodynamically stable. We are awaiting psychiatric team's evaluation. Patient has known history of psychiatric disorders and is here for evaluation. 1500: Patient signed out to Dr. Cottrell at shift change pending labs and evaluation. - Data Points Laboratory Results: Laboratory Results 12/25/16 14:25 12/25/16 14:25 0212/25/16 12/25/16 14:35 14:25 14:25 WBC 5.55 10^3/uL 10^3/uL (3.80-9.50) RBC 4.32 10^6/uL 10^6/uL (4.18-5.33) Hgb 13.7 g/dL g/dL (12.6-16.3) Hct 40.1 % % (38.0-47.0) MCV 92.8 fL fL (81.5-99.8) MCH 31.7 pg pg (27.9-34.1) MCHC 34.2 g/dL g/dL (32.4-36.7) RDW 12.3 % % (11.5-15.2) Plt Count 206 10^3/uL 10^3/uL (150-400) MPV 9.2 fL fL (8.7-11.7) Neut % (Auto) 64.7 % % (39.3-74.2) Lymph % (Auto) 26.3 % % (15.0-45.0) [place] % (Auto) 6.5 % % (4.5-13.0) Eos % (Auto) 1.6 % % (0.6-7.6) Baso % (Auto) 0.5 % % (0.3-1.7) Nucleat RBC Rel Count 0.0 % % (0.0-0.2) Absolute Neuts (auto) 3.59 10^3/uL 10^3/uL (1.70-6.50) Absolute Lymphs (auto) 1.46 10^3/uL 10^3/uL (1.00-3.00) Absolute Monos (auto) 0.36 10^3/uL 10^3/uL (0.30-0.80) Absolute Eos (auto) 0.09 10^3/uL 10^3/uL (0.03-0.40) Absolute Basos (auto) 0.03 10^3/uL 10^3/uL (0.02-0.10) Absolute Nucleated RBC 0.00 10^3/uL 10^3/uL (0-0.01) Immature Gran % 0.4 % % (0.0-1.1) Immature Gran # 0.02 10^3/uL 10^3/uL (0.00-0.10) Sodium 139 mEq/L mEq/L (134-144) Potassium 4.4 mEq/L mEq/L (3.5-5.2) Chloride 103 mEq/L mEq/L (97-110) Carbon Dioxide 26 mEq/l mEq/l (22-31) Anion Gap 10 mEq/L mEq/L (8-16) BUN 15 mg/dL mg/dL (7-23) Creatinine 0.8 mg/dL mg/dL (0.6-1.0) Estimated GFR > 60 Glucose 73 mg/dL mg/dL (70-100) Calcium 9.2 mg/dL mg/dL (8.5-10.4) Salicylates < 1.0 mg/dL L mg/dL (2.0-20.0) Urine Opiates Screen NEGATIVE (NEGATIVE) Acetaminophen < 10 mcg/mL L mcg/mL (10.0-30.0) Urine Barbiturates NEGATIVE (NEGATIVE) Ur Phencyclidine Scrn NEGATIVE (NEGATIVE) Ur Amphetamine Screen NEGATIVE (NEGATIVE) U Benzodiazepines Scrn NEGATIVE (NEGATIVE) Urine Cocaine Screen NEGATIVE (NEGATIVE) U Marijuana (THC) Screen NEGATIVE (NEGATIVE) Ethyl Alcohol < 10 mg/dL mg/dL (0-10) Departure - Departure Clinical Impression: Suicidal ideation Referrals: NONE *PRIMARY CARE P,. [Primary Care Provider] - As per Instructions Report Scribed for: Mohamud Barlow Report Scribed by: Abeba Ng Date of Report: 12/25/16 Time of Report: 14:16
[2016-12-25 14:28] VITALS: TEMP 97.9
[2016-12-25 14:37] LABS: % IMMATURE GRANULYOCYTES 0.4 % (0.0-1.1); ABSOLUTE IMMATURE GRANULOCYTES 0.02 10^3/uL (0.00-0.10); ADD DIFF? NO; ADD MORPH? NO; ADD SCAN? NO; ATYPICAL LYMPHOCYTE FLAG 10 (0-99); FRAGMENT RBC FLAG 0 (0-99); HEMATOCRIT 40.1 % (38.0-47.0); HEMOGLOBIN 13.7 g/dL (12.6-16.3); LEFT SHIFT FLG 0 (0-99); LIPEMIA HEMOLYSIS FLAG 90 (0-99); MEAN CELL HEMOGLOBIN 31.7 pg (27.9-34.1); MEAN CELL HEMOGLOBIN CONCENTR. 34.2 g/dL (32.4-36.7); MEAN CELL VOLUME 92.8 fL (81.5-99.8); MEAN PLATELET VOLUME 9.2 fL (8.7-11.7); PLATELET CLUMPS FLAG 0 (0-99); PLATELET COUNT 206 10^3/uL (150-400); RED BLOOD CELL COUNT 4.32 10^6/uL (4.18-5.33); RED CELL DISTRIBUTION WIDTH 12.3 % (11.5-15.2)
[2016-12-25 15:02] LABS: ANION GAP 10 mEq/L (8-16); CALCIUM 9.2 mg/dL (8.5-10.4); CARBON DIOXIDE 26 mEq/l (22-31); CHLORIDE 103 mEq/L (97-110); CREATININE 0.8 mg/dL (0.6-1.0); ETHANOL SERUM < 10 mg/dL (0-10); GLOMERULAR FILTRATION RATE > 60; GLUCOSE 73 mg/dL (70-100); POTASSIUM 4.4 mEq/L (3.5-5.2); SALICYLATE < 1.0 mg/dL (2.0-20.0); SODIUM 139 mEq/L (134-144)
[2016-12-25] MEDS ORDERED: GABAPENTIN 100 MG CAP PO ONE (18:20)
[2016-12-25] MEDS ORDERED: risperiDONE 2 MG TAB PO ONE (18:21)
[2016-12-25] MEDS ORDERED: NAPROXEN SODIUM 220 MG TAB PO ONE (18:22)
[2016-12-25] MEDS ORDERED: PRAZOSIN HCL 1 MG CAP PO ONE (18:23)
[2016-12-25] MEDS ORDERED: ALBUTEROL 60 PUFFS/8 GM MDI IH ONE (18:24)
[2016-12-25] MEDS ORDERED: BECLOMETHASONE QVAR 80 MDI IH ONE (18:27)
[2016-12-25 20:11] VITALS: BP 138/88; PULSE 100; RESP 16; O2SAT 94
[2016-12-26] MEDS ORDERED: FLUTICASONE NASAL 120 SPRAYS/16 GM MDI EACHNARE ONE (19:21)
== END 2016-12-25 20:10 | disposition home or self-care (01) ==
LOC: EDUNIT#
DX: R45.851 Suicidal ideations (principal)
CPT/HCPCS: 80305; G0480

== ENCOUNTER 2016-12-25 23:04 | Emergency (ER) | payer MEDICAID ==
[2016-12-25 23:08] VITALS: RESP 16
--- NOTE | 2016-12-25 23:49 | EDPHY ---
H & P Stated Complaint: BIB [facility] on [facility], suicidal ideations, DC'd earlier after eval for same Time Seen by Provider: 12/25/16 23:14 HPI/ROS: HPI The patient presents on an M1 mental health hold for suicidal ideation, placed by police to just prior to arrival. The patient is a male to female transgender patient who is homeless, who relocated to [place] from [place] about 1 month ago after being incarcerated. She has been staying at skilled nursing in [place], however was kicked out and now does not have a place to stay. She presented to the emergency room earlier today also feeling suicidal and was evaluated by the mental health worker and was deemed to not meet criteria for hospitalization and was discharged. The patient left with a 2 via outer and went to the [facility] and made threats, stating that she was going to a slash her wrists and throat with her crutch that she has. She takes risperidone , no changes in the medication recently. Denies any drug or alcohol use. Says that there was a suicide attempt in 2014 with in an attempt to [place] the [place] and in 1986. She says she was last hospitalized in 1986. REVIEW OF SYSTEMS Constitutional: No fever, no chills. Eyes: No discharge. ENT: No sore throat. Cardiovascular: No chest pain, no palpitations. Respiratory: No cough, no shortness of breath. Gastrointestinal: No abdominal pain, no vomiting. Genitourinary: No hematuria. Musculoskeletal: No back pain. Skin: No rashes. Neurological: No headache. PMHx: States bipolar disorder, PTSD, osteoarthritis Soc Hx: Homeless PHYSICAL General Appearance: Alert, discharge of old, tired appearing Eyes: Pupils equal and round no pallor or injection ENT, Mouth: Mucous membranes moist Respiratory: There are no retractions, lungs are clear to auscultation Cardiovascular: Regular rate and rhythm Gastrointestinal: Abdomen is soft and non-tender, no masses, bowel sounds normal Neurological: A&O, moves all extremities Skin: Warm and dry, no rashes Musculoskeletal: Neck is supple non tender Extremities: symmetrical, full range of motion Psychiatric: Patient is oriented X 3, there is no agitation Source: Patient Exam Limitations: No limitations - Personal History Current Tetanus/Diphtheria Vaccine: Unsure - Medical/Surgical History Hx Asthma: No Hx Chronic Respiratory Disease: Yes Hx Diabetes: No Hx Cardiac Disease: No Hx Renal Disease: No Hx Cirrhosis: No Hx Alcoholism: Yes Hx HIV/AIDS: No Hx Splenectomy or Spleen Trauma: No Other PMH: COPD, PTSD, osteoarthritis, ortho sx, TBIs. Bipolar. - Social History Smoking Status: Current every day smoker Constitutional: Initial Vital Signs Temperature (C) 36.5 C 12/25/16 23:05 Heart Rate 82 12/25/16 23:05 Respiratory Rate 16 12/25/16 23:05 Blood Pressure 123/78 H 12/25/16 23:05 O2 Sat (%) 96 12/25/16 23:05 O2 Delivery Mode Room Air Allergies/Adverse Reactions: aspirin Allergy (Verified 12/23/16 08:05) bupropion HCl [From Wellbutrin] Allergy (Verified 12/13/16 18:13) Pork/Porcine Containing Products [pork] Allergy (Verified 12/13/16 18:13) varenicline tartrate [From Chantix] Allergy (Verified 12/13/16 18:13) Home Medications: Medication Instructions Recorded Albuterol [Proventil Inhaler HFA 2 puffs IH Q4-6PRN PRN 12/13/16 (*)] Estradiol [Estradiol Transdermal 1 each TD Q7D 12/13/16 Patch] Naproxen [Naprosyn] 500 mg PO BID PRN 12/13/16 Tiotropium Inhaler [Spiriva 18 mcg IH DAILY 12/13/16 Handihaler] Albuterol [Proventil Neb] 3 ml IH Q4H PRN 12/15/16 Emtricitabine/Tenofovir [Truvada 1 tab PO DAILY 12/15/16 200MG/300MG (*)] Fluticasone Nasal [Flonase Nasal 1 sprays NASAL HS 12/15/16 [place]] Spironolactone [Aldactone] 50 mg PO DAILY 12/15/16 Terbinafine HCl [LamISIL 250 MG 250 mg PO DAILY 12/15/16 (*)] Beclomethasone Qvar 80 [Qvar 80 2 puffs IH BIDI #1 mdi 12/22/16 (*)] Calcium Carb W/Vit D [Calcium Carb 500 mg PO DAILY #30 tab 12/22/16 W/Vit D 500/200 (*)] Docusate Sodium [Colace 100 MG (*)] 100 mg PO DAILY #30 cap 12/22/16 Fluticasone Nasal [Flonase Nasal 1 sprays [place] HS@1900 #0 mdi 12/22/16 [place]] Gabapentin [Neurontin 100 MG (*)] 100 mg PO TID@0700,1200,1900 #90 12/22/16 cap Gabapentin [Neurontin 400 MG (*)] 400 mg PO TID@0700,1200,1900 #90 12/22/16 cap [place]-3 Fatty Acids [Fish Oil 1000 0 mg PO DAILY@0700 #0 cap 12/22/16 mg (*)] Prazosin HCl [Minipress 1mg (*)] 4 mg PO HS@1900 #60 cap 12/22/16 risperiDONE [Risperdal] 3 mg PO BID@0700,1900 #60 tab 12/22/16 Medical Decision Making ED Course/Re-evaluation: 1:50 a.m.- The patient was evaluated by the mental health worker and deemed not to meet admission criteria. At the root of patient's problem seems to be his homelessness. The mental health worker is going to attempt to provide resources to the patient. Patient is asking for hospitalization, however does not seem appropriate. She will be discharged from the ER. Differential Diagnosis: This is a 56-year-old male to female transgender patient with past medical history of bipolar disorder, PTSD COPD, osteoarthritis who presents, placed on an M1 hold by police for suicidal ideation. The patient was evaluated earlier in the day today and did not meet criteria for hospitalization. The patient now returns asking to be hospitalized, stating if she is discharged she will hurt herself by slitting her wrists with her crutch. She was recently kicked out of her skilled nursing. Differential diagnosis includes bipolar disorder with depression, psychosis, malingering. - Data Points Laboratory Results: Laboratory Results 12/25/16 23:40 12/25/16 23:40 12/25/16 12/25/16 12/25/16 23:40 23:40 23:40 WBC 7.91 10^3/uL 10^3/uL (3.80-9.50) RBC 4.41 10^6/uL 10^6/uL (4.18-5.33) Hgb 14.2 g/dL g/dL (12.6-16.3) Hct 41.4 % % (38.0-47.0) MCV 93.9 fL fL (81.5-99.8) MCH 32.2 pg pg (27.9-34.1) MCHC 34.3 g/dL g/dL (32.4-36.7) RDW 12.3 % % (11.5-15.2) Plt Count 230 10^3/uL 10^3/uL (150-400) MPV 9.6 fL fL (8.7-11.7) Neut % (Auto) 69.6 % % (39.3-74.2) Lymph % (Auto) 20.9 % % (15.0-45.0) [place] % (Auto) 7.1 % % (4.5-13.0) Eos % (Auto) 1.6 % % (0.6-7.6) Baso % (Auto) 0.5 % % (0.3-1.7) Nucleat RBC Rel Count 0.0 % % (0.0-0.2) Absolute Neuts (auto) 5.51 10^3/uL 10^3/uL (1.70-6.50) Absolute Lymphs (auto) 1.65 10^3/uL 10^3/uL (1.00-3.00) Absolute Monos (auto) 0.56 10^3/uL 10^3/uL (0.30-0.80) Absolute Eos (auto) 0.13 10^3/uL 10^3/uL (0.03-0.40) Absolute Basos (auto) 0.04 10^3/uL 10^3/uL (0.02-0.10) Absolute Nucleated RBC 0.00 10^3/uL 10^3/uL (0-0.01) Immature Gran % 0.3 % % (0.0-1.1) Immature Gran # 0.02 10^3/uL 10^3/uL (0.00-0.10) Sodium 142 mEq/L mEq/L (134-144) Potassium 4.6 mEq/L mEq/L (3.5-5.2) Chloride 104 mEq/L mEq/L (97-110) Carbon Dioxide 29 mEq/l mEq/l (22-31) Anion Gap 9 mEq/L mEq/L (8-16) BUN 17 mg/dL mg/dL (7-23) Creatinine 0.9 mg/dL mg/dL (0.6-1.0) Estimated GFR > 60 Glucose 95 mg/dL mg/dL (70-100) Calcium 9.3 mg/dL mg/dL (8.5-10.4) Urine Opiates Screen NEGATIVE (NEGATIVE) Urine Barbiturates NEGATIVE (NEGATIVE) Ur Phencyclidine Scrn NEGATIVE (NEGATIVE) Ur Amphetamine Screen NEGATIVE (NEGATIVE) U Benzodiazepines Scrn NEGATIVE (NEGATIVE) Urine Cocaine Screen NEGATIVE (NEGATIVE) U Marijuana (THC) Screen NEGATIVE (NEGATIVE) Ethyl Alcohol < 10 mg/dL mg/dL (0-10) Departure - Departure Disposition: Home, Routine, Self-Care Clinical Impression: Homelessness Bipolar disorder Qualifiers: Active/Remission status: currently active Current bipolar episode type: mixed Current episode severity: unspecified Qualified Code(s): F31.60 - Bipolar disorder, current episode mixed, unspecified Condition: Good Instructions: Bipolar Disorder (ED) Referrals: [facility],. [Clinic] - As per Instructions
[2016-12-26 00:04] LABS: % IMMATURE GRANULYOCYTES 0.3 % (0.0-1.1); ABSOLUTE IMMATURE GRANULOCYTES 0.02 10^3/uL (0.00-0.10); ADD DIFF? NO; ADD MORPH? NO; ADD SCAN? NO; ATYPICAL LYMPHOCYTE FLAG 0 (0-99); FRAGMENT RBC FLAG 0 (0-99); HEMATOCRIT 41.4 % (38.0-47.0); HEMOGLOBIN 14.2 g/dL (12.6-16.3); LEFT SHIFT FLG 0 (0-99); LIPEMIA HEMOLYSIS FLAG 90 (0-99); MEAN CELL HEMOGLOBIN 32.2 pg (27.9-34.1); MEAN CELL HEMOGLOBIN CONCENTR. 34.3 g/dL (32.4-36.7); MEAN CELL VOLUME 93.9 fL (81.5-99.8); MEAN PLATELET VOLUME 9.6 fL (8.7-11.7); PLATELET CLUMPS FLAG 10 (0-99); PLATELET COUNT 230 10^3/uL (150-400); RED BLOOD CELL COUNT 4.41 10^6/uL (4.18-5.33); RED CELL DISTRIBUTION WIDTH 12.3 % (11.5-15.2)
[2016-12-26 00:06] LABS: ANION GAP 9 mEq/L (8-16); CALCIUM 9.3 mg/dL (8.5-10.4); CARBON DIOXIDE 29 mEq/l (22-31); CHLORIDE 104 mEq/L (97-110); CREATININE 0.9 mg/dL (0.6-1.0); ETHANOL SERUM < 10 mg/dL (0-10); GLOMERULAR FILTRATION RATE > 60; GLUCOSE 95 mg/dL (70-100); POTASSIUM 4.6 mEq/L (3.5-5.2); SODIUM 142 mEq/L (134-144)
[2016-12-26 02:23] VITALS: BP 114/67; PULSE 75; TEMP 97.5; O2SAT 93
== END 2016-12-26 02:51 | disposition home or self-care (01) ==
DX: Z59.0 Homelessness (principal); F31.60 Bipolar disorder, current episode mixed, unspecified; J44.9 Chronic obstructive pulmonary disease, unspecified; F17.200 Nicotine dependence, unspecified, uncomplicated
CPT/HCPCS: 80305; G0480

== ENCOUNTER → 2017-02-05 | Outpatient (CLI) | payer MEDICAID, OTHER | LOC: FCPNEURO 20:00 | PROVIDERS: ATTEND Psychiatry & Neurology Sleep Medicine | DX: G47.33 Obstructive sleep apnea (adult) (pediatric) (principal); G47.36 Sleep related hypoventilation in conditions classified elsewhere; G47.61 Periodic limb movement disorder ==